=== PATIENT | male | born 1980 | race African-American/Black ===

== ENCOUNTER 2019-04-09 04:06 | Emergency (ER) | payer OTHER ==
[~2019-04-09] VITALS: Ht 365.8 cm; Wt 77.0 kg
[2019-04-09 04:20] VITALS: Ht 365.8 cm; Wt 77.0 kg
[2019-04-09] MEDS ORDERED: ONDANSETRON 4 MG INJ IV STA (04:27)
[2019-04-09] MEDS ORDERED: BELLADONNA/PHENOBARBITAL TAB PO STA (04:27)
[2019-04-09] MEDS ORDERED: KETOROLAC 15 MG INJ IV STA (04:27)
[2019-04-09] MEDS ORDERED: LIDOCAINE/MYLANTA 40 ML BTL PO STA (04:27)
[2019-04-09] MEDS ORDERED: LORAZEPAM 0.5 MG TAB PO ONE (04:30)
[2019-04-09 05:59] VITALS: BP 123/71; PULSE 76; RESP 16
[2019-04-09] MEDS ORDERED: MULTIVITAMINS 10 ML, THIAMINE 100 MG, FOLIC ACID 1 MG in SOD CHLORIDE 0.9% 1,000 ML IVPB SCH (09:00)
== END 2019-04-09 05:59 | disposition home or self-care (01) ==
LOC: E/R 04:06
DX: R07.9 Chest pain, unspecified (principal); F10.920 Alcohol use, unspecified with intoxication, uncomplicated; F51.01 Primary insomnia
CPT/HCPCS: 36415; 71045; 80053; 80307; 83690; 84484; 85025; 93005; 96374; 96375; J1885; J2405; Z7502; Z7610; J3411; J7030